=== PATIENT | male | born 1960 | race American Indian/Alaskan Native ===

== ENCOUNTER 2017-02-28 05:40 | Outpatient (CLI) | payer BC ==
[~2017-02-28] VITALS: Ht 188 cm; Wt 77.1 kg
[2017-02-28] MEDS ORDERED: FOSI40TA2 PO (15:49)
[2017-02-28] MEDS ORDERED: METO50TA15 PO (15:49)
[2017-02-28] MEDS ORDERED: MECL-106 PO (15:49)
[2017-02-28] MEDS ORDERED: BACL10TA PO (15:49)
[2017-02-28] MEDS ORDERED: BUSP15TA60 PO (15:49)
[2017-02-28] MEDS ORDERED: LEVE500T6 PO (15:49)
[2017-03-05] MEDS ORDERED: HYDR-3812 PO (12:41)
== END 2017-02-28 15:52 ==
LOC: PREOP 05:40
PROVIDERS: ATTEND Otolaryngology Otolaryngology/Facial Plastic Surgery
DX: Z01.818 Encounter for other preprocedural examination (principal); S02.92XA Unspecified fracture of facial bones, initial encounter for closed fracture; B19.20 Unspecified viral hepatitis C without hepatic coma; X58.XXXA Exposure to other specified factors, initial encounter

== ENCOUNTER 2017-03-05 10:48 | Day surgery (SDC) | payer BC ==
[~2017-03-05] VITALS: Ht 188 cm; Wt 77.1 kg
[~2017-03-05 10:48] MED LIST: BACL10TA PO; BUSP15TA60 PO; FOSI40TA2 PO; LEVE500T6 PO; MECL-106 PO; METO50TA15 PO
--- OUTSIDE RECORDS SUMMARY | 2017-03-05 10:52 | XMS REPORT ---
Author Author Bethel nEgle [facility] Address [address] [place], [place] [address] Care Team Providers Care Dispatcher Bus And Trolley Name Role Phone Bethel Engle PCP Allergies and Adverse Reactions Name Reaction Notes No known allergies Plan of Treatment Not available. Medications Active Name Start Date Estimated Completion Date SIG Comments Dilantin Extended 100 mg oral capsule take 4 capsules (400 mg) by oral route once daily tramadol 50 mg oral tablet take 1 tablet by oral route 3 times a day Ambien oral Ativan oral Problem List Description Status Onset Hepatitis C Active Hypertension Active Seizure disorder Active Vital Signs Date Time BP-Sys(mm[Hg] BP-Gavi(mm[Hg]) HR(bpm) RR(rpm) Temp WT HT HC BMI BSA BMI Percentile O2 Sat(%) 04/26/2016 5:58:00 PM 112 mmHg 62 mmHg 82 bpm 20 rpm 98.2 F 167 lbs 74 in 21.44 kg/m2 1.99 m2 98 % Social History Name Description Comments Tobacco Current every day smoker Alcohol Heavy History of Procedures Date Ordered Description Order Status 04/26/2016 12:00 AM X-RAY EXAM OF SHOULDER Returned Results Summary Not available. History Of Immunizations Not available. History of Past Illness Name Date of Onset Comments Hepatitis C Hypertension Seizure disorder Right shoulder injury, initial encounter Apr 26 2016 6:00PM Fall, initial encounter Apr 26 2016 6:00PM Periorbital ecchymosis of right eye, initial encounter Apr 26 2016 6:00PM Payers Insurance Name Company Name Plan Name Plan Number Policy Number Policy Group Number [facility] Date [id number] Wednesday, 2016 [employer] Financial Assistance [employer] [facility] Financial Lionel 40 percent N/A History of Encounters Visit Date Visit Type Provider 04/26/2016 Office visit Bethel Engle APRN 02/14/2015 [facility] Candice Cartwright MD 01/26/2014 [facility] Henrique Gibbs MD 01/24/2014 [facility] Henrique Gibbs MD 11/06/2012 [facility] Estella Beckett MD 11/09/2009 Laboratory Alycia Ramos MD
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
--- OUTSIDE RECORDS SUMMARY | 2017-03-05 10:52 | XMS REPORT | CCD ---
Author Author ROSALIA GALEAS Organization Unknown Address [address] [place], [place] [address] Care Team Providers Care Clinical Partner Name Role Phone TRINIDAD AVILA ER Attphys ALVARADOPRAFUL DO Prisurg Vital Signs Unknown or Not Available. Allergies Allergy Code Allergy Type Reaction Status No Known Drug Allergies 0 No known drug allergies Active Procedures Procedure Code Procedure Type Date CT HEAD W/O CONTRAST 940169933 SNOMED CT 07/07/2014 HIP COMP MIN [address] 07/07/2014 ^CBC W/ MANUAL DIFF 08064045 SNOMED [address] 07/07/[address] 07/07/2014 COMPREHENSIVE METABOLIC PANEL 009652650 SNOMED CT 2014 CBC W/ AUTO DIFF (RFLX MAN DIFF IF IND) 6218525 SNOMED CT 07/07/2014 History of Immunizations Immunization Code Date pneumococcal, unspecified formulation 109 03/25/2011 Influenza, seasonal, injectable 141 01/30/2014 Problems Problem Code Start Date Resolved Date Status Fx of right hip, initial encounter for closed fx 599049212 2013 Active Results COMPREHENSIVE METABOLIC PANEL - Collect Date/Time: 07/07/2014 13:30 Test Name Code Test Result Test Units Test Ref Range GLUCOSE 2345-7 99 MG/DL L=70 H=100 SODIUM 2951-2 135 MEQ/L L=135 H=148 POTASSIUM 2823-3 3.1 MEQ/L L=3.5 H=5.3 CHLORIDE 2075-0 95 MEQ/L L=96 H=110 CO2 2028-9 27 MEQ/L L=22 H=29 BUN 3094-0 3 MG/DL L=8 H=22 CREATININE 2160-0 0.7 MG/DL L=0.6 H=1.6 SGOT/AST 1920-8 110 IU/L L=10 H=40 SGPT/ALT 1742-6 84 IU/L L=8 H=54 ALK PHOS 6768-6 73 IU/L L=35 H=115 TOTAL PROTEIN 2885-2 7.6 G/DL L=5.5 H=8.5 ALBUMIN 1751-7 4.0 G/DL L=3.1 H=5.4 TOTAL BILI 1975-2 0.6 MG/DL L=0.0 H=1.5 CALCIUM 48583-0 8.9 MG/DL L=8.2 H=10.6 AGE 54 yrs GFR NonAA 118 GFR AA 143 eGFR >60 N/A eGFR AA* >60 N/A ALCOHOL - Collect Date/Time: 07/07/2014 13:30 Test Name Code Test Result Test Units Test Ref Range ETHANOL 5640-8 311 MG/DL CBC W/ AUTO DIFF (RFLX MAN DIFF IF IND) - Collect Date/Time: 07/07/2014 13:30 Test Name Code Test Result Test Units Test Ref Range WBC 35463-3 3.5 TH/CMM L=4.5 H=10.8 RBC 789-8 3.43 ML/CMM L=4.70 H=6.10 HGB 718-7 12.9 G/DL L=14.0 H=18.0 HCT 4544-3 36.6 % L=42.0 H=52.0 MCV 107 FL L=81 H=99 MCH 37.6 PG L=27.0 H=33.0 MCHC 35.2 G/DL L=31.0 H=36.0 RDW SD 52 FL L=36 H=50 RDW CV 13.3 % L=0.0 H=14.8 MPV 9.2 FL L=9.3 H=12.5 PLT 777-3 212 TH/CMM L=130 H=440 NRBC# 0.00 TH/CMM L=0.00 H=0.00 NRBC% 0.0 /100WBC L=0.0 H=2.0 %NEUT 41.7 % %LYMP 39.1 % %MONO 17.3 % %EOS 1.1 % %BASO 0.8 % #NEUT 1.47 TH/CMM L=2.10 H=8.20 #LYMP 1.38 TH/CMM L=0.90 H=5.20 #MONO 0.61 TH/CMM L=0.16 H=1.00 #EOS 0.04 TH/CMM L=0.00 H=0.80 #BASO 0.03 TH/CMM L=0.00 H=0.20 SEGS 37 % BANDS 7 % LYMPHS 41 % MONOS 14 % EOS 1 % MANUAL DIFF SEE BELOW N/A MACRO 2++ N/A HYPO 1+ N/A Active Medications Medication Code Dose Units Frequency Route Modification Start Date/Time cloNIDine HCl 0.1MG Oral Tablet 006833 0.1 MILLIGRAMS THREE TIMES A DAY BY MOUTH 01/30/2014 12:07 Folic Acid 1MG Oral Tablet 142527 1 MILLIGRAMS DAILY BY MOUTH 01/30/2014 12:07 Oxazepam 15MG Oral Capsule 216219 15 MILLIGRAMS EVERY 8 HOURS BY MOUTH 01/30/2014 12:07 Protonix 40MG Oral Tablet, Enteric Coated 722382 40 MILLIGRAMS TWO TIMES A DAY BY MOUTH 01/30/2014 12: 07 Vitamin B1 100MG Oral Tablet 754708 100 MILLIGRAMS DAILY BY MOUTH 01/30/2014 12:07 HYDROcodone bitartrate-acetaminophen 325MG-5MG Oral Tablet 570833 1 TABLET NEEDED EVERY 6 HR BY MOUTH 12:06 Xarelto 10MG Oral Tablet 5950398 10 MILLIGRAMS DAILY BY MOUTH 01/30/2014 12:06 Amitriptyline 25MG Oral Tablet 622057 75 MILLIGRAMS AT BEDTIME ORAL 01/30/2014 12:05 Aspirin 81MG Oral Tablet 904919 81 MILLIGRAMS DAILY ORAL 01/30/2014 12:05 busPIRone 15MG Oral Tablet 507351 15 MILLIGRAMS TWO TIMES A DAY ORAL 01/30/2014 12:05 Dilantin 100MG Oral Capsule, Extended Release 296504 400 MILLIGRAMS AT BEDTIME ORAL 01/30/2014 12:05 Fosinopril 40MG Oral Tablet 337894 40 MILLIGRAMS DAILY ORAL 01/30/2014 12:05 hydrOXYzine Pamoate 25MG Oral Capsule 501642 50 MILLIGRAMS AT BEDTIME ORAL 01/30/2014 12:05 Meclizine HCl 25MG Oral Tablet 386244 25 MILLIGRAMS TWO TIMES A DAY ORAL 01/30/2014 12:05 Metoprolol Tartrate 25MG Oral Tablet 448126 25 MILLIGRAMS TWO TIMES A DAY ORAL 01/30/2014 12:05 Medications Administered During Visit Unknown or Not Available. Encounters Encounter Diagnosis Diagnosis Code Start Date CONTUSION OF HIP 86002 07/07/2014 Social History Smoking Status Code Start Date End Date Current every day smoker 028848979 Patient Decision Aids Unknown or Not Available. Discharge Instructions You were admitted to [facility] on 07/07/2014 with a principal diagnosis of CONTUSION OF HIP. You were discharged from [facility] on 07/07/2014. Should you have any questions prior to discharge, please contact a member of your healthcare team. If you have left the hospital and have any questions, please contact your primary care physician. Chief Complaint and Reason For Visit Chief Complaint Date of Onset LEG PAIN Function Status Unknown or Not Available. Referral/Transition of Care Unknown or Not Available.
--- OUTSIDE RECORDS SUMMARY | 2017-03-05 10:53 | XMS REPORT | CCD ---
Author Author SCOTTY APPLE Organization Unknown Address [address] [facility] [email or web address] [place], [place] [address] Care Team Providers Care License Issuer Name Role Phone PRAFUL ALVARADO DO Attphys ALVARADOBRADLEYPRAFUL DO Prisurg Vital Signs Unknown or Not Available. Allergies Allergy Code Allergy Type Reaction Status No Known Drug Allergies 0 No known drug allergies Active Procedures Procedure Code Procedure Type Date CBC W/ AUTO DIFF (RFLX MAN DIFF IF IND) 5352392 SNOMED CT 02/02/2015 COMPREHENSIVE METABOLIC PANEL 068190487 SNOMED CT [address] 02/02/2015 RAPID DRUG SCREEN 155799520 SNOMED CT 02/02/2015 ^CBC W/AUTO DIFF 6449864 SNOMED CT 02/02/[address] 02/03/2015 CT HEAD W/O CONTRAST 451390970 SNOMED CT 02/02/2015 History of Immunizations Immunization Code Date pneumococcal, unspecified formulation 109 03/25/2011 Influenza, seasonal, injectable 141 01/30/2014 Problems Problem Code Start Date Resolved Date Status Alcohol withdrawal 089670452 Active Fx of right hip, initial encounter for closed fx 490007019 201302/15/2015 Resolved Results COMPREHENSIVE METABOLIC PANEL - Collect Date/Time: 02/02/2015 22:45 Test Name Code Test Result Test Units Test Ref Range GLUCOSE 2345-7 89 MG/DL L=70 H=100 SODIUM 2951-2 145 MEQ/L L=135 H=148 POTASSIUM 2823-3 4.0 MEQ/L L=3.5 H=5.3 CHLORIDE 2075-0 107 MEQ/L L=96 H=110 CO2 2028-9 25 MEQ/L L=22 H=29 BUN 3094-0 5 MG/DL L=8 H=22 CREATININE 2160-0 0.7 MG/DL L=0.6 H=1.6 SGOT/AST 1920-8 81 IU/L L=10 H=40 SGPT/ALT 1742-6 66 IU/L L=8 H=54 ALK PHOS 6768-6 70 IU/L L=35 H=115 TOTAL PROTEIN 2885-2 7.8 G/DL L=5.5 H=8.5 ALBUMIN 1751-7 3.9 G/DL L=3.1 H=5.4 TOTAL BILI 1975-2 0.3 MG/DL L=0.0 H=1.5 CALCIUM 10451-2 9.0 MG/DL L=8.2 H=10.6 AGE 54 yrs GFR NonAA 118 GFR AA 143 eGFR >60 N/A eGFR AA* >60 N/A ALCOHOL - Collect Date/Time: 02/03/2015 01:50 Test Name Code Test Result Test Units Test Ref Range ETHANOL 5640-8 264 MG/DL ALCOHOL - Collect Date/Time: 02/02/2015 22:45 Test Name Code Test Result Test Units Test Ref Range ETHANOL 5640-8 342 MG/DL RAPID DRUG SCREEN - Collect Date/Time: 02/03/2015 01:02 Test Name Code Test Result Test Units Test Ref Range Cannabinoids (THC) NON-NEGATIVE N/A NEG: < 50 ng/ml Phencyclidine (PCP) NEGATIVE N/A NEG: < 25 ng/ ml Cocaine NEGATIVE N/A NEG: < 300 ng/ml Methamphetamine NEGATIVE N/A NEG: < 1000 ng/ml Opiates NEGATIVE N/A NEG: < 300 ng/ml Amphetamine NON-NEGATIVE N/A NEG: < 1000 ng/ml Benzodiazepines NEGATIVE N/A NEG: < 300 ng/ml Tricyclic Antidepres NEGATIVE N/A NEG: < 300 ng/ ml Methadone NEGATIVE N/A NEG: < 300 ng/ml Barbiturates NEGATIVE N/A NEG: < 200 ng/ml Oxycodone NEGATIVE N/A NEG: < 100 ng/ml Propoxyphene (PPX) NEGATIVE N/A NEG: < 300 ng/ ml CBC W/ AUTO DIFF (RFLX MAN DIFF IF IND) - Collect Date/Time: 02/02/2015 22:45 Test Name Code Test Result Test Units Test Ref Range WBC 84685-0 4.5 TH/CMM L=4.5 H=10.8 RBC 789-8 3.86 ML/CMM L=4.70 H=6.10 HGB 718-7 14.2 G/DL L=14.0 H=18.0 HCT 4544-3 40.1 % L=42.0 H=52.0 MCV 104 FL L=81 H=99 MCH 36.8 PG L=27.0 H=33.0 MCHC 35.4 G/DL L=31.0 H=36.0 RDW SD 61 FL L=36 H=50 MPV 7.5 FL L=9.3 H=12.5 PLT 777-3 362 TH/CMM L=130 H=440 %NEUT 46.7 % %LYMP 38.0 % %MIXED 15.30 % L=2.00 H=25.00 #NEUT 2.10 TH/CMM L=2.10 H=8.20 #LYMP 1.70 TH/CMM L=0.90 H=5.20 #MIXED 0.70 TH/CMM MANUAL DIFF NOT IND N/A Active Medications Medication Code Dose Units Frequency Route Modification Start Date/Time LORazepam 1MG Oral Tablet 675171 1 MILLIGRAMS THREE TIMES A DAY BY MOUTH 02/16/2015 07:16 Prescription Detail 1 MILLIGRAMS BY MOUTH THREE TIMES A DAY cloNIDine HCl 0.1MG Oral Tablet 933707 0.1 MILLIGRAMS THREE TIMES A DAY BY MOUTH 01/30/2014 12:07 Prescription Detail 0.1 MILLIGRAMS BY MOUTH THREE TIMES A DAY Folic Acid 1MG Oral Tablet 016551 1 MILLIGRAMS DAILY BY MOUTH 01/30/2014 12:07 Prescription Detail 1 MILLIGRAMS BY MOUTH DAILY Protonix 40MG Oral Tablet, Enteric Coated 037514 40 MILLIGRAMS TWO TIMES A DAY BY MOUTH 01/30/2014 12: 07 Prescription Detail 40 MILLIGRAMS BY MOUTH TWO TIMES A DAY Vitamin B1 100MG Oral Tablet 602358 100 MILLIGRAMS DAILY BY MOUTH 01/30/2014 12:07 Prescription Detail 100 MILLIGRAMS BY MOUTH DAILY Xarelto 10MG Oral Tablet 9960518 10 MILLIGRAMS DAILY BY MOUTH 01/30/2014 12:06 Prescription Detail 10 MILLIGRAMS BY MOUTH DAILY till 02/03/14 Amitriptyline 25MG Oral Tablet 597231 75 MILLIGRAMS AT BEDTIME ORAL 01/30/2014 12:05 Prescription Detail 75 MILLIGRAMS ORAL AT BEDTIME Aspirin 81MG Oral Tablet 623573 81 MILLIGRAMS DAILY ORAL 01/30/2014 12:05 Prescription Detail 81 MILLIGRAMS ORAL DAILY busPIRone 15MG Oral Tablet 218420 15 MILLIGRAMS TWO TIMES A DAY ORAL 01/30/2014 12:05 Prescription Detail 15 MILLIGRAMS ORAL TWO TIMES A DAY Dilantin 100MG Oral Capsule, Extended Release 402494 400 MILLIGRAMS AT BEDTIME ORAL 01/30/2014 12:05 Prescription Detail 400 MILLIGRAMS ORAL AT BEDTIME Fosinopril 40MG Oral Tablet 219240 40 MILLIGRAMS DAILY ORAL 01/30/2014 12:05 Prescription Detail 40 MILLIGRAMS ORAL DAILY Metoprolol Tartrate 25MG Oral Tablet 799798 25 MILLIGRAMS TWO TIMES A DAY ORAL 01/30/2014 12:05 Prescription Detail 25 MILLIGRAMS ORAL TWO TIMES A DAY Medications Administered During Visit Unknown or Not Available. Encounters Encounter Diagnosis Diagnosis Code Start Date Alcohol dependence 21908005 02/02/2015 Social History Smoking Status Code Start Date End Date Current every day smoker 857058093 Patient Decision Aids Unknown or Not Available. Discharge Instructions You were admitted to [facility] on 02/02/2015 with a principal diagnosis of Alcohol dependence . You were discharged from [facility] on 02/03/2015. Should you have any questions prior to discharge, please contact a member of your healthcare team. If you have left the hospital and have any questions, please contact your primary care physician. Chief Complaint and Reason For Visit Chief Complaint Date of Onset . Function Status Unknown or Not Available. Plan of Care Unknown or Not Available. Referral/Transition of Care Unknown or Not Available.
--- OUTSIDE RECORDS SUMMARY | 2017-03-05 10:53 | XMS REPORT ---
Author Author Maria Eugenia Smalls Organization [facility] Address [address] [place], [place] [address] Care Team Providers Care Warehouse Shipper Name Role Phone Maria Eugenia Smalls PCP Unavailable Allergies and Adverse Reactions Name Reaction Notes No known allergies Plan of Treatment Not available. Medications Active Name Start Date Estimated Completion Date SIG Comments Dilantin Extended 100 mg oral capsule take 4 capsules (400 mg) by oral route once daily tramadol 50 mg oral tablet take 1 tablet by oral route 3 times a day Ambien oral Ativan oral levetiracetam 500 mg oral tablet take 1 tablet (500 mg) by oral route 2 times per day Problem List Description Status Onset Hepatitis C Active Hypertension Active Seizure disorder Active Vital Signs Date Time BP-Sys(mm[Hg] BP-Gavi(mm[Hg]) HR(bpm) RR(rpm) Temp WT HT HC BMI BSA BMI Percentile O2 Sat(%) 06/21/2016 7:26:00 PM 160 mmHg 100 mmHg 128 bpm 22 rpm 99.6 F 160 lbs 74 in 20.54 kg/m2 1.95 m2 96 % 04/26/2016 5:58:00 PM 112 mmHg 62 mmHg 82 bpm 20 rpm 98.2 F 167 lbs 74 in 21.4413 kg/m 1.9887 m 98 % Social History Name Description Comments Tobacco Current every day smoker Alcohol Heavy History of Procedures Date Ordered Description Order Status 04/26/2016 12:00 AM X-RAY EXAM OF SHOULDER Reviewed 05/07/2016 12:00 AM Shoulder Immobilizer Provided Reviewed 06/21/2016 12:00 AM COMPLETE CBC W/AUTO DIFF WBC Reviewed 06/21/2016 12:00 AM COMPREHEN METABOLIC PANEL Reviewed 06/21/2016 12:00 AM X-RAY EXAM NECK SPINE 2-3 VW Reviewed 06/22/2016 12:00 AM X-RAY EXAM L-S SPINE 2/3 VWS Reviewed 06/22/2016 12:00 AM X-RAY EXAM THORAC SPINE 3VWS Reviewed Results Summary Date and Description Results 06/21/2016 8:45 PM GLUCOSE 103.0 mg/dLSODIUM 143.0 mmol/LPOTASSIUM 3.70 mmol/ LCHLORIDE 103.0 mmol/LCO2 28.0 mmol/LBUN 11.0 mg/dLCREATININE 0.70 mg/dLSGOT/ AST 107.0 IU/LSGPT/ALT 66.0 IU/LALK PHOS 69.0 IU/LTOTAL PROTEIN 7.80 g/ dLALBUMIN 3.90 g/dLTOTAL BILI 0.80 mg/dLCALCIUM 9.40 mg/dLAGE 56 GFR NonAA 117 GFR AA 142 eGFR >60 mL/min/1.73meGFR AA* >60 WBC 4.9 RBC 3.52 HGB 13.30 g/ dLHCT 38.50 %MCV 109.0 fLMCH 37.80 pgMCHC 34.50 g/dLRDW SD 57 RDW CV 14.20 %MPV 9.90 fLPLT 157 NRBC# 0.00 NRBC% 0.0 %NEUT 62.70 %%LYMP 21.70 %%MONO 13.20 %%EOS 1.40 %%BASO 0.60 %#NEUT 3.08 #LYMP 1.07 #MONO 0.65 #EOS 0.07 #BASO 0.03 MANUAL DIFF NOT IND History Of Immunizations Not available. History of Past Illness Name Date of Onset Comments Hepatitis C Hypertension Seizure disorder Right shoulder injury, initial encounter Apr 26 2016 6:00PM Fall, initial encounter Apr 26 2016 6:00PM Periorbital ecchymosis of right eye, initial encounter Apr 26 2016 6:00PM Back pain Jun 21 2016 7:27PM Hepatitis C Jun 21 2016 7:27PM Hypertension Jun 21 2016 7:27PM Seizure disorder Jun 21 2016 7:27PM Dizzy Jun 21 2016 7:27PM Fall Jun 21 2016 7:27PM Alcohol abuse Jun 21 2016 7:27PM Payers Insurance Name Company Name Plan Name Plan Number Policy Number Policy Group Number [id number] Wednesday, 2016 [employer] Financial Assistance [employer] Lionel 40 percent N/A History of Encounters Visit Date Visit Type Provider 06/21/2016 Office visit Maria Eugenia Smalls WAFER FAB TECHNICIAN 04/26/2016 Office visit Bethel Engle APRN 02/14/2015 [facility] Candice Cartwright MD 01/26/2014 [facility] Henrique Gibbs MD 01/24/2014 [facility] Henrique Gibbs MD 11/06/2012 [facility] Estella Beckett MD 11/09/2009 Laboratory Alycia Ramos MD
--- OUTSIDE RECORDS SUMMARY | 2017-03-05 10:53 | XMS REPORT | Continuity of Care Document ---
Author Author [facility] Address Unknown Phone Unavailable Allergies Medications Problems Procedures Results Encounters ACCT No. Visit Date/Time Discharge Status Pt. Type Provider Facility Loc./Unit Complaint [id number] 06/21/2016 20:18:12 06/21/2016 23: 59:59 CLS Outpatient Clive Maria Eugenia Princess [id number] 04/26/2016 18:50:45 04/26/2016 23: 59:59 CLS Outpatient Bethel Engle [id number] 04/21/2015 22:02:06 04/21/2015 23: 59:59 CLS Outpatient Candice Cartwright [id number] 02/03/2014 15:29:09 02/03/2014 23: 59:59 CLS Outpatient Estella Beckett [id number] 02/03/2014 15:21:20 02/03/2014 23: 59:59 CLS Outpatient Estella Beckett
--- OUTSIDE RECORDS SUMMARY | 2017-03-05 10:53 | XMS REPORT | CCD ---
Author Author ZECHARIAH SCOTTY CAROLYNHarper Organization Unknown Address [address] [place], [place] [id number] Care Team Providers Care Utility Worker Driver Name Role Phone PARESH MCADAMS MD Attphys W., JENNIFER Mixon NASST K., JEANNA Bey NASST R., LUTHER Saleem NASST M., YARIEL NASST C., JEANNA Bah NASST M., KALINA Bah NASST K., SONJA NASST S., RASHAUN Bey NASST F., NENA NASST S., JEANNA NASST T., APRIL Dominguez NASST Vital Signs Vital Sign Value Unit Date/Time Recent/Initial? Weight Measured 178 lbs 02/14/2015 18:30 Initial VS Height 74 in 02/14/2015 18:30 Initial VS BMI (Body Mass Index) 22.85 kg/m^2 02/14/2015 18:30 Initial VS BSA (Body Surface Area) 2.05 m^2 02/14/2015 18:30 Initial VS BP Systolic 169 mmHg 02/14/2015 18:30 Initial VS BP Diastolic 116 mmHg 02/14/2015 18:30 Initial VS Respiratory Rate 18 bpm 02/14/2015 18:30 Initial VS Heart Rate 87 bpm 02/14/2015 18:30 Initial VS O2 % BldC Oximetry 97 % 02/14/2015 18:30 Initial VS Body Temperature 98.2 degrees 02/14/2015 18:30 Initial VS BP Systolic 136 mmHg 02/16/2015 15:02 Most Recent VS BP Diastolic 82 mmHg 02/16/2015 15:02 Most Recent VS Respiratory Rate 20 bpm 02/16/2015 15:02 Most Recent VS Heart Rate 76 bpm 02/16/2015 15:02 Most Recent VS O2 % BldC Oximetry 96 % 02/16/2015 15:02 Most Recent VS Body Temperature 97.5 degrees 02/16/2015 15:02 Most Recent VS Allergies Allergy Code Allergy Type Reaction Status No Known Drug Allergies 0 No known drug allergies Active Procedures Procedure Code Procedure Type Date Detoxification Services for Substance Abuse Treatment [id number] ICD -10 PCS 02/14/2015 HIP [address] 02/15/2015 CX CHEST [id number] 02/14/2015 COMPREHENSIVE METABOLIC PANEL 243123387 SNOMED CT [address] 02/16/[address] 02/15/2015 .THC QUANT [place] 027452154 SNOMED CT 02/14/[address] 02/14/2015 RAPID DRUG SCREEN 072823843 SNOMED CT 02/14/2015 UA ROUTINE ONLY 698356514 SNOMED CT 02/14/2015 COMPREHENSIVE METABOLIC PANEL 941558918 SNOMED CT 2014 CBC W/ AUTO DIFF (RFLX MAN DIFF IF IND) 4923356 SNOMED CT 02/14/2015 ^CBC W/AUTO DIFF 8061704 SNOMED CT 02/14/2015 ^UA AUTO DIPSTICK ONLY 297723112 SNOMED CT 02/14/2015 History of Immunizations Immunization Code Date pneumococcal, unspecified formulation 109 03/25/2011 Influenza, seasonal, injectable 141 01/30/2014 Problems Problem Code Start Date Resolved Date Status Alcohol withdrawal 373794151 Active Results COMPREHENSIVE METABOLIC PANEL - Collect Date/Time: 02/16/2015 06:45 Test Name Code Test Result Test Units Test Ref Range GLUCOSE 2345-7 101 MG/DL L=70 H=100 SODIUM 2951-2 134 MEQ/L L=135 H=148 POTASSIUM 2823-3 3.7 MEQ/L L=3.5 H=5.3 CHLORIDE 2075-0 106 MEQ/L L=96 H=110 CO2 2028-9 22 MEQ/L L=22 H=29 BUN 3094-0 7 MG/DL L=8 H=22 CREATININE 2160-0 0.6 MG/DL L=0.6 H=1.6 SGOT/AST 1920-8 36 IU/L L=10 H=40 SGPT/ALT 1742-6 30 IU/L L=8 H=54 ALK PHOS 6768-6 75 IU/L L=35 H=115 TOTAL PROTEIN 2885-2 6.9 G/DL L=5.5 H=8.5 ALBUMIN 1751-7 3.5 G/DL L=3.1 H=5.4 TOTAL BILI 1975-2 0.8 MG/DL L=0.0 H=1.5 CALCIUM 93975-8 8.8 MG/DL L=8.2 H=10.6 AGE 54 yrs GFR NonAA 141 GFR AA 171 eGFR >60 N/A eGFR AA* >60 N/A COMPREHENSIVE METABOLIC PANEL - Collect Date/Time: 02/14/2015 19:15 Test Name Code Test Result Test Units Test Ref Range GLUCOSE 2345-7 107 MG/DL L=70 H=100 SODIUM 2951-2 136 MEQ/L L=135 H=148 POTASSIUM 2823-3 3.8 MEQ/L L=3.5 H=5.3 CHLORIDE 2075-0 102 MEQ/L L=96 H=110 CO2 2028-9 23 MEQ/L L=22 H=29 BUN 3094-0 5 MG/DL L=8 H=22 CREATININE 2160-0 0.6 MG/DL L=0.6 H=1.6 SGOT/AST 1920-8 49 IU/L L=10 H=40 SGPT/ALT 1742-6 37 IU/L L=8 H=54 ALK PHOS 6768-6 88 IU/L L=35 H=115 TOTAL PROTEIN 2885-2 8.2 G/DL L=5.5 H=8.5 ALBUMIN 1751-7 4.2 G/DL L=3.1 H=5.4 TOTAL BILI 1975-2 0.7 MG/DL L=0.0 H=1.5 CALCIUM 58547-8 9.6 MG/DL L=8.2 H=10.6 AGE 54 yrs GFR NonAA 141 GFR AA 171 eGFR >60 N/A eGFR AA* >60 N/A ALCOHOL - Collect Date/Time: 02/14/2015 19:15 Test Name Code Test Result Test Units Test Ref Range ETHANOL 5640-8 20 MG/DL RAPID DRUG SCREEN - Collect Date/Time: 02/14/2015 20:41 Test Name Code Test Result Test Units Test Ref Range Cannabinoids (THC) NON-NEGATIVE N/A NEG: < 50 ng/ml Phencyclidine (PCP) NEGATIVE N/A NEG: < 25 ng/ ml Cocaine NEGATIVE N/A NEG: < 300 ng/ml Methamphetamine NEGATIVE N/A NEG: < 1000 ng/ml Opiates NEGATIVE N/A NEG: < 300 ng/ml Amphetamine NEGATIVE N/A NEG: < 1000 ng/ml Benzodiazepines NEGATIVE N/A NEG: < 300 ng/ml Tricyclic Antidepres NEGATIVE N/A NEG: < 300 ng/ ml Methadone NEGATIVE N/A NEG: < 300 ng/ml Barbiturates NEGATIVE N/A NEG: < 200 ng/ml Oxycodone NEGATIVE N/A NEG: < 100 ng/ml Propoxyphene (PPX) NEGATIVE N/A NEG: < 300 ng/ ml CBC W/ AUTO DIFF (RFLX MAN DIFF IF IND) - Collect Date/Time: 02/14/2015 19:15 Test Name Code Test Result Test Units Test Ref Range WBC 35602-2 3.8 TH/CMM L=4.5 H=10.8 RBC 789-8 3.90 ML/CMM L=4.70 H=6.10 HGB 718-7 14.2 G/DL L=14.0 H=18.0 HCT 4544-3 41.0 % L=42.0 H=52.0 MCV 105 FL L=81 H=99 MCH 36.4 PG L=27.0 H=33.0 MCHC 34.6 G/DL L=31.0 H=36.0 RDW SD 61 FL L=36 H=50 RDW CV 16.0 % L=0.0 H=14.8 MPV 9.1 FL L=9.3 H=12.5 PLT 777-3 241 TH/CMM L=130 H=440 NRBC# 0.00 TH/CMM L=0.00 H=0.00 NRBC% 0.0 /100WBC L=0.0 H=2.0 %NEUT 46.6 % %LYMP 32.5 % %MONO 16.9 % %EOS 3.2 % %BASO 0.8 % #NEUT 1.77 TH/CMM L=2.10 H=8.20 #LYMP 1.23 TH/CMM L=0.90 H=5.20 #MONO 0.64 TH/CMM L=0.16 H=1.00 #EOS 0.12 TH/CMM L=0.00 H=0.80 #BASO 0.03 TH/CMM L=0.00 H=0.20 MANUAL DIFF NOT IND N/A HEMOGRAM - Collect Date/Time: 02/16/2015 06:45 Test Name Code Test Result Test Units Test Ref Range WBC 11792-1 5.8 TH/CMM L=4.5 H=10.8 RBC 789-8 3.56 ML/CMM L=4.70 H=6.10 HGB 718-7 12.7 G/DL L=14.0 H=18.0 HCT 4544-3 38.3 % L=42.0 H=52.0 MCV 108 FL L=81 H=99 MCH 35.7 PG L=27.0 H=33.0 MCHC 33.2 G/DL L=31.0 H=36.0 RDW SD 63 FL L=36 H=50 RDW CV 16.0 % L=0.0 H=14.8 MPV 9.5 FL L=9.3 H=12.5 PLT 777-3 200 TH/CMM L=130 H=440 NRBC# 0.00 TH/CMM L=0.00 H=0.00 NRBC% 0.0 /100WBC L=0.0 H=2.0 UA ROUTINE ONLY - Collect Date/Time: 02/14/2015 20:41 Test Name Code Test Result Test Units Test Ref Range COLOR YELLOW N/A NL: YELLOW APPEARANCE CLEAR N/A NL: CLEAR SPEC GRAV <=1.005 N/A NL: 1.002 - 1.022 pH 7.5 N/A NL: 5 - 9 PROTEIN NEGATIVE N/A NL: NEGATIVE mg/dl GLUCOSE NEGATIVE N/A NL: NEGATIVE mg/dl KETONE NEGATIVE N/A NL: NEGATIVE mg/dl BILIRUBIN NEGATIVE N/A NL: NEGATIVE BLOOD NEGATIVE N/A NL: NEGATIVE NITRITE NEGATIVE N/A NL: NEGATIVE LEUK SCREEN NEGATIVE N/A NL: NEGATIVE MICRO IND? NOT IND N/A MAGNESIUM - Collect Date/Time: 02/15/2015 09:45 Test Name Code Test Result Test Units Test Ref Range MAGNESIUM 37883-8 2.3 MG/DL L=1.7 H=2.8 Active Medications Medication Code Dose Units Frequency Route Modification Start Date/Time LORazepam 1MG Oral Tablet 609859 1 MILLIGRAMS THREE TIMES A DAY BY MOUTH 02/16/2015 07:16 Prescription Detail 1 MILLIGRAMS BY MOUTH THREE TIMES A DAY cloNIDine HCl 0.1MG Oral Tablet 746460 0.1 MILLIGRAMS THREE TIMES A DAY BY MOUTH 01/30/2014 12:07 Prescription Detail 0.1 MILLIGRAMS BY MOUTH THREE TIMES A DAY Folic Acid 1MG Oral Tablet 390866 1 MILLIGRAMS DAILY BY MOUTH 01/30/2014 12:07 Prescription Detail 1 MILLIGRAMS BY MOUTH DAILY Protonix 40MG Oral Tablet, Enteric Coated 538736 40 MILLIGRAMS TWO TIMES A DAY BY MOUTH 01/30/2014 12: 07 Prescription Detail 40 MILLIGRAMS BY MOUTH TWO TIMES A DAY Vitamin B1 100MG Oral Tablet 109277 100 MILLIGRAMS DAILY BY MOUTH 01/30/2014 12:07 Prescription Detail 100 MILLIGRAMS BY MOUTH DAILY Xarelto 10MG Oral Tablet 7691802 10 MILLIGRAMS DAILY BY MOUTH 01/30/2014 12:06 Prescription Detail 10 MILLIGRAMS BY MOUTH DAILY till 02/03/14 Amitriptyline 25MG Oral Tablet 042606 75 MILLIGRAMS AT BEDTIME ORAL 01/30/2014 12:05 Prescription Detail 75 MILLIGRAMS ORAL AT BEDTIME Aspirin 81MG Oral Tablet 422069 81 MILLIGRAMS DAILY ORAL 01/30/2014 12:05 Prescription Detail 81 MILLIGRAMS ORAL DAILY busPIRone 15MG Oral Tablet 827266 15 MILLIGRAMS TWO TIMES A DAY ORAL 01/30/2014 12:05 Prescription Detail 15 MILLIGRAMS ORAL TWO TIMES A DAY Dilantin 100MG Oral Capsule, Extended Release 130878 400 MILLIGRAMS AT BEDTIME ORAL 01/30/2014 12:05 Prescription Detail 400 MILLIGRAMS ORAL AT BEDTIME Fosinopril 40MG Oral Tablet 422295 40 MILLIGRAMS DAILY ORAL 01/30/2014 12:05 Prescription Detail 40 MILLIGRAMS ORAL DAILY Metoprolol Tartrate 25MG Oral Tablet 018706 25 MILLIGRAMS TWO TIMES A DAY ORAL 01/30/2014 12:05 Prescription Detail 25 MILLIGRAMS ORAL TWO TIMES A DAY Medications Administered During Visit Medication Dose Units Frequency Route Date/ Time of Last Dose BANANA BAG DAILY IV 02/15/2015 20:53 LORAZEPAM (ATIVAN)TAB:1MG 1 MG TID PO 2014 13:21 HydrALAzine [APRESOLINE] 20 MG/1ML VIAL 10 MG X1 INJECTION 02/14/2015 19:11 ACETAMINOPHEN [TYLENOL] TABS 325MG 650 MG PRN QID PO 02/16/2015 09:56 THIAMINE HCL [VITAMIN B-1] TAB: 100 MG 100 MG DAILY PO 02/16/2015 09:47 CLONIDINE [CATAPRES] TABLET: 0.1 MG 0.1 MG X1 PO 02/16/2015 13:21 Encounters Encounter Diagnosis Diagnosis Code Start Date Alcohol dependence with withdrawal, unspecified [id number] 2014 Social History Smoking Status Code Start Date End Date Current every day smoker [id number] Patient Decision Aids Patient Decision Aid Altered Mental Status PATIENT PORTAL ACCESS Discharge Instructions You were admitted to [facility] on 02/14/2015 with a principal diagnosis of Alcohol dependence with withdrawal, unspecified. You were discharged from [facility] on 02/16/2015. Should you have any questions prior to discharge, please contact a member of your healthcare team. If you have left the hospital and have any questions, please contact your primary care physician. HOME DIET: Regular. CONDITION AT DISMISSAL Stable. ACTIVITY INSTRUCTIONS(list limitations ): Activity as Tolerated. FOLLOW UP CARE - SEE YOUR PHYSICIAN: PLEASE MAKE FOLLOW UP APPOINTMENT WITH DR. MCADAMS IN 1 WEEK. WE WERE UNABLE TO MAKE APPOINTMENT FOR YOU DUE TO THE OFFICE BEING CLOSED. SPECIAL INSTRUCTIONS: PLEASE BE HIGHLY INVOLVED IN LOCAL AA. NO ALCOHOL USAGE. SCRIPTS WRITTEN BY DOCTOR GIVEN TO PATIENT? Yes, for what?LORAZEPAM 1MG THREE TIMES A DAY. PERSONAL ITEMS RETURNED: Yes. PATIENT PORTAL/OTHER INSTRUCTIONS: Provided education info on Patient Jacob. INSTRUCTIONS GIVEN AND DISCHARGE TO: Patient, Spouse/SO. VOICES UNDERSTANDING OF INSTRUCTIONS: Yes. INSTRUCTIONS GIVEN BY (TYPE IN NAME AND DATE) Oral CHAND RN. 02/16/15 CONTACT PHYSICIAN IF YOU EXPERIENCE ANY: fever, Shortness of Breath, Nausea/Vomiting, ALTERED MENTAL STATUS, ANY ABNORMALITIES FOR YOU. SMOKING CESSATION: Smoking and second hand smoke is harmful, to your health.. Smoking has been linked to cancer, cardiac disease, COPD, and asthma.. For more information you can call:, 7-849-NGZ-STOP, or 5-020-FKTW-[place].. A pamphlet on smoking was given to you, at admission.. CHIEF COMPLAINT : patient presents to dr. mcadams's office to get established. patient presents with high blood pressure. patient states he ran out of blood pressure 2 weeks ago. patient also presents with alcohol abuse. Chief Complaint and Reason For Visit Chief Complaint Date of Onset ALCOHOL WITHDRAWL Function Status Unknown or Not Available. Plan of Care Unknown or Not Available. Referral/Transition of Care Unknown or Not Available.
[2017-03-05 11:00] VITALS: BP 131/95
[2017-03-05 11:22] LABS: BASOPHILS % (AUTO) 1 % (0-10); EOSINOPHILS % (AUTO) 1 % (0-10); HEMATOCRIT 42 % (40-54); HEMOGLOBIN 14.8 G/DL (13.3-17.7); LYMPHOCYTES # (AUTO) 2.3 X 10^3 (1.0-4.0); LYMPHOCYTES % (AUTO) 36 % (12-44); MEAN CORPUSCULAR HEMOGLOBIN 36 PG (25-34); MEAN CORPUSCULAR HGB CONC 35 G/DL (32-36); MEAN CORPUSCULAR VOLUME 102 FL (80-99); MEAN PLATELET VOLUME 8.8 FL (7.4-10.4); MONOCYTES # (AUTO) 1.2 X 10^3 (0.0-1.0); MONOCYTES % (AUTO) 20 % (0-12); NEUTROPHILS # (AUTO) 2.7 X 10^3 (1.8-7.8); NEUTROPHILS % (AUTO) 43 % (42-75); PLATELET COUNT 301 10^3/uL (130-400); RED BLOOD COUNT 4.12 10^6/uL (4.35-5.85); RED CELL DISTRIBUTION WIDTH 12.5 % (10.0-14.5); WHITE BLOOD COUNT 6.2 10^3/uL (4.3-11.0)
[2017-03-05 11:40] LABS: BUN/CREATININE RATIO 18; CALCIUM 9.6 MG/DL (8.5-10.1); CARBON DIOXIDE 28 MMOL/L (21-32); CHLORIDE 93 MMOL/L (98-107); CREATININE SERUM 0.76 MG/DL (0.60-1.30); GFR ESTIMATED > 60; GLUCOSE 91 MG/DL (70-105); POTASSIUM 3.1 MMOL/L (3.6-5.0); SODIUM 133 MMOL/L (135-145)
[2017-03-05 11:44] LABS: EOSINOPHILS % (MANUAL) 1 %; LYMPHOCYTES % (MANUAL) 42 %; MONOCYTES % (MANUAL) 18 %; NEUTROPHILS % (MANUAL) 39 %; RBC MORPH NORMAL
[2017-03-05] MEDS ORDERED: ceFAZolin INJECTION 1,000 MG in NS (IVPB) 50 ML IV ONE (11:45)
[2017-03-05 11:52] LABS: AMPHETAMINE SCREEN, URINE NEGATIVE (NEGATIVE); BARBITURATE SCREEN URINE NEGATIVE (NEGATIVE); BENZODIAZEPINES SCREEN URINE NEGATIVE (NEGATIVE); CANNABINOID SCREEN, URINE POSITIVE (NEGATIVE); COCAINE SCREEN URINE NEGATIVE (NEGATIVE); METHADONE STAT NEGATIVE (NEGATIVE); METHAMPHETAMINE SCREEN URINE S NEGATIVE (NEGATIVE); OPIATE SCREEN URINE POSITIVE (NEGATIVE); OXYCODONE STAT NEGATIVE (NEGATIVE); PROPOXYPHENE STAT NEGATIVE (NEGATIVE); TRICYCLIC ANTIDEPRESSANTS SCRE NEGATIVE (NEGATIVE)
[2017-03-05] MEDS ORDERED: BSS 15 ML ONE (11:54)
[2017-03-05] MEDS ORDERED: LIDOCAINE/EPI 1%-1:200,000 (XYLOCAINE) 10 ML VIAL ONE (11:55)
[2017-03-05] MEDS ORDERED: NEO/POLY/BACI (NEOSPORIN) OPHTH OINT 3.5 GM ONE (11:55)
[2017-03-05] MEDS ORDERED: GLYCOPYRROLATE 0.2 MG/ML (ROBINUL) 2 ML VIAL ONE (11:56)
[2017-03-05] MEDS ORDERED: LIDOCAINE PF 2% 5 ML (XYLOCAINE) VIAL ONE (11:56)
[2017-03-05] MEDS ORDERED: DEXAMETHASONE 10 MG/ML (DECADRON) 1 ML VIAL ONE (11:56)
[2017-03-05] MEDS ORDERED: proPOfol 200 MG/20 ML (DIPRIVAN) VIAL IV ONE (11:56)
[2017-03-05] MEDS ORDERED: NEOSTIGMINE (BLOXIVERZ ) 1 MG/1ML 10 ML VIAL ONE (11:56)
[2017-03-05] MEDS ORDERED: ROCURONIUM 50 MG/5 ML (ZEMURON) VIAL IV ONE (11:56)
[2017-03-05] MEDS ORDERED: MIDAZOLAM 2 MG/2 ML (VERSED) VIAL ONE (11:56)
[2017-03-05] MEDS ORDERED: ONDANSETRON 4 MG/2 ML (SDV) Z0FRAN ONE (11:56)
[2017-03-05] MEDS ORDERED: SEVOFLURANE (ULTANE) 15 ML INHAL SOLN ONE ×2 (11:56→14:17)
[2017-03-05] MEDS ORDERED: fentaNYL INJECTION 250 MCG/5 ML AMP ONE (11:57)
[2017-03-05] MEDS: LACTATED RINGERS 1,000 ML IV PRN ×2 (12:02→13:10)
[2017-03-05] MEDS ORDERED: ACHD5005 PO (12:41)
--- NOTE | 2017-03-05 14:28 | Progress Note-Pre Operative ---
Pre-Operative Progress Note H&P Reviewed The H&P was reviewed, patient examined and no changes noted. Date Seen by Provider: Mar 05, 2017 Time Seen by Provider: 12:25 Date H&P Reviewed: Mar 05, 2017 Time H&P Reviewed: 12:25 Pre-Operative Diagnosis: Left Tripod Fracture ADELINA PAULA MD Mar 05, 2017 2:28 pm
--- NOTE | 2017-03-05 14:29 | Progress Note-Post Operative ---
Post-Operative Progess Note Surgeon (s)/Bleach Maker (s) Surgeon ADELINA PAULA MD Bleach Maker n/a Pre-Operative Diagnosis Left Tripod Fracture Post-Operative Diagnosis same Post-Op Procedure Note Date of Procedure: Mar 05, 2017 Name of Procedure Performed: ORIF of Left Tripod FRacture with Multiple Surgical Approaches Description & Findings Description and Findings: n/a Anesthesia Type get Estimated Blood Loss minimal Packing none. Specimen(s) collected/removed none ADELINA PAULA MD Mar 05, 2017 2:29 pm
[2017-03-05] MEDS ORDERED: ACETAMINOPHEN 325 MG TABLET/CAPLET (TYLENOL) PO PRN (14:30)
[2017-03-05] MEDS ORDERED: HYDROcodone/APAP 5 MG/325 MG (LORTAB) TAB PO PRN (14:30)
[2017-03-05] MEDS ORDERED: HYDROmorphone (DILAUDID) 2 MG/ML VIAL ONE (14:37)
[2017-03-05] MEDS ORDERED: ONDANSETRON 4 MG/2 ML (SDV) Z0FRAN IVP PRN (14:45)
[2017-03-05] MEDS ORDERED: fentaNYL INJECTION 100 MCG/2 ML AMP IVP PRN (14:45)
[2017-03-05] MEDS: HYDROmorphone (DILAUDID) 2 MG/ML VIAL IVP PRN ×4 (14:47→15:10)
[2017-03-05 15:25] VITALS: BP 138/98
[2017-03-05] MEDS ORDERED: HYDROcodone/APAP 5 MG/325 MG (LORTAB) TAB ONE (15:43)
[2017-03-05 15:55] VITALS: BP 131/93
[2017-03-05 16:35] VITALS: BP 138/94
[2017-03-05 16:45] VITALS: BP 138/94
--- NOTE | 2017-03-06 12:58 | Anesthesia-General Post-Op ---
General Patient Condition Mental Status/LOC: Same as Preop Cardiovascular: Satisfactory Nausea/Vomiting: Absent Respiratory: Satisfactory Pain: Controlled Complications: Absent Post Op Complications Complications None Follow Up Care/Instructions Patient Instructions None needed. Anesthesia/Patient Condition Patient Condition Patient is doing well, no complaints, stable vital signs, no apparent adverse anesthesia problems. No complications reported per nursing. NITHYA RANGEL CRNA Mar 06, 2017 12:58
== END 2017-03-05 16:45 | disposition home or self-care (01) ==
LOC: SDC 10:48
PROVIDERS: ATTEND Otolaryngology Otolaryngology/Facial Plastic Surgery
DX: S02.82XA Fracture of other specified skull and facial bones, left side, initial encounter for closed fracture (principal); S02.40FA Zygomatic fracture, left side, initial encounter for closed fracture; I10 Essential (primary) hypertension; B19.20 Unspecified viral hepatitis C without hepatic coma; R56.9 Unspecified convulsions; F17.210 Nicotine dependence, cigarettes, uncomplicated; M19.91 Primary osteoarthritis, unspecified site; X58.XXXA Exposure to other specified factors, initial encounter; Y92.149 Unspecified place in prison as the place of occurrence of the external cause; Z79.899 Other long term (current) drug therapy
CPT/HCPCS: 36415; 80048; 80306; 85007; 85027; 87081; 93005